=== PATIENT | female | born 1995 | race Caucasian/White ===

== ENCOUNTER 2018-10-12 17:00 | Emergency (ER) | payer BC, MEDICAID ==
[~2018-10-12] VITALS: Ht 160 cm; Wt 107.5 kg
[~2018-10-12 17:00] MED LIST: NAPR-985 PO
[2018-10-12 18:13] VITALS: Ht 160 cm; Wt 107.5 kg
[2018-10-12] MEDS ORDERED: IBUPROFEN 600 MG TAB PO ONE (20:00)
[2018-10-12] MEDS ORDERED: IBUP-1542 PO (20:42)
--- NOTE | 2018-10-12 20:47 | ERD ---
ER Documentation Chief Complaint Chief Complaint right knee pain s/p pop 1wk ago HPI 23-year-old female presents with right knee pain for last week. She was walking and felt a pop. She has pain primarily behind her right knee. She denies calf swelling, hemoptysis, syncope, shortness of breath. ROS All systems reviewed and are negative except as per history of present illness. Medications Home Meds Active Scripts Ibuprofen* (Motrin*) 600 Mg Tab, 600 MG PO Q6, #20 TAB Prov:JUSTICE COHN MD 10/12/18 Naproxen* (Naprosyn*) 500 Mg Tablet, 500 MG PO BID PRN for PAIN AND/OR INFLAMMATION, #30 TAB Prov:GALEN PRICE PA-C 10/31/15 Allergies Allergies: Coded Allergies: No Known Allergy (Unverified , 10/31/15) PMhx/Soc Medical and Surgical Hx: pt denies Medical Hx, pt denies Surgical Hx History of Surgery: Yes (TONSILLECTOMY ) Anesthesia Reaction: No Hx Neurological Disorder: No Hx Respiratory Disorders: No Hx Cardiac Disorders: No Hx Psychiatric Problems: No Hx Miscellaneous Medical Probl: No Hx Alcohol Use: No Hx Substance Use: Yes (MARIJUANA ) Hx Tobacco Use: No Smoking Status: Current some day smoker FmHx Family History: No diabetes, No coronary disease, No other Physical Exam Vitals Vital Signs Date Temp Pulse Resp B/P (MAP) Pulse Ox O2 O2 Flow FiO2 Time Delivery Rate 10/12/18 98.7 63 18 169/79 97 18:13 (109) Physical Exam Const: No acute distress Head: Atraumatic Eyes: Normal Conjunctiva ENT: Normal External Ears, Nose and Mouth. Neck: Full range of motion. No meningismus. Resp: Clear to auscultation bilaterally Cardio: Regular rate and rhythm, no murmurs Abd: Soft, non tender, non distended. Normal bowel sounds Skin: No petechiae or rashes Back: No midline or flank tenderness Ext: No cyanosis, or edema. Generalized tenderness to the right knee. Mostly in the posterior popliteal area. No calf swelling or Homans sign. No warmth or erythema. No effusion. Positive pain with anterior drawer but difficult to assess stability due to body habitus. Neur: Awake and alert Psych: Normal Mood and Affect Results 24 hrs Current Medications Medications Dose Sig/Riya Start Time Status Last (Trade) Ordered Route PRN Stop Time Admin Dose Reason Admin Ibuprofen 600 mg ONCE ONCE 10/12/18 DC 10/12/18 (Motrin) PO 20:00 10/12/18 19:39 20:01 Procedures/MDM X-ray right knee 3V Interpreted by me: Bones: No fracture Joints: No dislocation Foreign body: None. Impression abnormal right knee x-ray Signs symptoms right knee sprain, possibly ligamentous injury. Current signs or symptoms do not suggest DVT, cellulitis, fracture, dislocation, ischemia or deficits. She will be placed in a right knee immobilizer and was neurovascular intact after right knee immobilizer. She will discharged home with primary care follow-up and orthopedic evaluation for persistent pain. She is advised to return for fevers, redness, shortness of breath, new worsening symptoms. Patient was advised he may need authorization from primary doctor for orthopedist visit. The patient was stable with no new complaints during the ER course. Clinically, there is no current evidence to suggest meningitis, sepsis, acute abdomen, pneumonia, stroke, acute coronary syndrome, pulmonary embolism, aortic dissection or any other emergent condition appearing to require further evaluation or hospitalization. Patient counseled regarding my diagnostic impression and care plan. Prior to discharge all questions answered. Pt agrees with treatment plan and understands strict return precautions. Pt is instructed to follow up with primary care provider within 24-48 hours. Precautionary instructions provided including instructions to return to the ER if not improving or for any worsening or changing symptoms or concerns. Disclaimer: Inadvertent spelling and grammatical errors are likely due to EHR/dictation software use and do not reflect on the overall quality of patient care. Also, please note that the electronic time recorded on this note does not necessarily reflect the actual time of the patient encounter. Departure Diagnosis: Primary Impression: Knee pain Chronicity: acute Laterality: right Qualified Codes: M25.561 - Pain in right knee Condition: Stable Patient Instructions: Knee Pain, Uncertain Cause, Knee Sprain Referrals: JAEL HIGUERA (PCP) BARRY BARBOSA MD Additional Instructions: X-ray read as normal. Likely sprain. See orthopedist for further evaluation treatment evaluation of ligaments. Recheck for fevers, redness, new worsening symptoms. May need authorization from primary doctor for orthopedist visit. JUSTICE COHN MD 4, 2019 20:47
[2018-10-12 21:38] VITALS: BP 123/69; PULSE 60; RESP 18
== END 2018-10-12 21:39 | disposition home or self-care (01) ==
LOC: FTE 17:00
DX: M25.561 Pain in right knee (principal); F17.210 Nicotine dependence, cigarettes, uncomplicated
CPT/HCPCS: 29505; 73562; Z7502; Z7610